=== PATIENT | male | born 1985 | race Caucasian/White ===

== ENCOUNTER 2017-04-07 01:43 | Emergency (ER) | payer MEDICAID ==
[~2017-04-07] VITALS: Ht 180.3 cm; Wt 81.2 kg
[2017-04-07 03:23] VITALS: BP 133/78
== END 2017-04-07 03:23 | disposition home or self-care (01) ==
LOC: ED 01:43
DX: S29.011A Strain of muscle and tendon of front wall of thorax, initial encounter (principal); M94.0 Chondrocostal junction syndrome [Tietze]; X58.XXXA Exposure to other specified factors, initial encounter; Y93.89 Activity, other specified; Y99.8 Other external cause status; Y92.89 Other specified places as the place of occurrence of the external cause
CPT/HCPCS: J1885